=== PATIENT | female | born 1945 | race Two or more races ===

== ENCOUNTER → 2017-07-28 | Outpatient (CLI) | payer MEDICARE, OTHER ==
[~2017-07-28] MED LIST: ALEN1TAB PO; AMLO2.5T29 PO; CALC500T62 PO; DIGO125T71 PO; HYDR12.530 PO; RAMI10TA PO; SIMV20TA6 PO; WARF3TAB59 PO; WARF4TAB6 PO
== END | disposition home or self-care (01) ==
LOC: RADPV 10:22
PROVIDERS: ATTEND Internal Medicine
DX: I35.1 Nonrheumatic aortic (valve) insufficiency (principal); Z95.1 Presence of aortocoronary bypass graft; Z95.2 Presence of prosthetic heart valve
CPT/HCPCS: 93306

== ENCOUNTER 2019-03-07 14:18 | Inpatient (IN) | payer OTHER ==
[~2019-03-07] VITALS: Ht 165.1 cm; Wt 61.2 kg
[~2019-03-07 14:18] MED LIST changes: +SIMV-43 PO; -SIMV20TA6 PO; -WARF4TAB6 PO; +WARF4TAB72 PO
[2019-03-07] MEDS ORDERED: 0.9% SODIUM CHLORIDE 10 ML SYRINGE IVP PRN ×3 (15:15→22:00)
[2019-03-07] MEDS ORDERED: CLINDAMYCIN 300 MG/D5% WATER 50 ML IV ONE (15:15)
[2019-03-07] MEDS ORDERED: CefTRIAXone 1 GM/DEXTROSE 50 ML IV ONE (15:15)
[2019-03-07 16:03] LABS: BASOPHILS % (AUTO) 0.7 % (0.0-2.0); EOSINOPHILS % (AUTO) 2.2 % (1.0-6.0); HEMATOCRIT 37.7 % (36-46); HEMOGLOBIN 12.1 g/dL (12.0-16.0); LYMPHOCYTES # (AUTO) 0.7 K/uL (1.0-4.8); LYMPHOCYTES % (AUTO) 16.8 % (22.0-44.0); MEAN CORPUSCULAR HEMOGLOBIN 26.9 pg (26.0-34.0); MEAN CORPUSCULAR HGB CONC 32.2 G/dL (31.0-37.0); MEAN CORPUSCULAR VOLUME 84 fL (80-100); MONOCYTES # (AUTO) 0.4 K/uL (0.1-1.0); NEUTROPHILS # (AUTO) 3.1 K/uL (1.8-7.7); NEUTROPHILS % (AUTO) 71.3 % (40.0-70.0); PLATELET COUNT (AUTO) 173 K/uL (150-450); RED BLOOD CELL COUNT(AUTO) 4.51 MIL/uL (4.00-5.20); RED CELL DISTRIBUTION WIDTH 17.9 % (11.5-14.5)
[2019-03-07 16:17] LABS: ANION GAP 9 mmol/L (8-16); CALCIUM, TOTAL 8.9 mg/dL (8.8-10.5); CARBON DIOXIDE 28 mmol/L (22-29); CHLORIDE 101 mmol/L (98-107); CREATININE 0.73 mg/dL (0.60-1.30); GLUCOSE,RANDOM 102 mg/dL (70-110); POTASSIUM 3.9 mmol/L (3.5-5.1); SODIUM SERUM 138 mmol/L (136-145); UREA NITROGEN, BLOOD 8 mg/dL (7-18)
[2019-03-07 16:23] LABS: GLOMERULAR FILTR. RATE CALC > 60 mL/min (>60)
[2019-03-07 16:25] LABS: ALANINE AMINOTRANSFERASE 26 U/L (12-78); ALBUMIN 4.3 g/dL (3.4-5.0); ALKALINE PHOSPHATASE 78 U/L (46-116); ASPARTATE AMINOTRANSFERASE 29 U/L (15-37); BILIRUBIN,TOTAL 0.7 mg/dL (0.1-1.0); DIGOXIN 0.38 ng/mL (0.90-2.00); TOTAL PROTEIN, SERUM 8.4 g/dL (6.4-8.2)
[2019-03-07 16:38] LABS: LACTIC ACID 1.8 mmol/L (0.4-2.0)
[2019-03-07] MEDS ORDERED: ACETAMINOPHEN 325 MG TABLET PO PRN (17:45)
[2019-03-07] MEDS ORDERED: ONDANSETRON HCL 4 MG/2 ML VIAL IVP PRN ×2 (17:45→22:00)
[2019-03-07 18:16] LABS: INR 4.9 (0.9-1.1)
[2019-03-07 21:00] VITALS: BP 148/75
[2019-03-07] MEDS: SIMVASTATIN 20 MG TABLET PO SCH (22:00)
[2019-03-07] MEDS: DOCUSATE SODIUM 100 MG CAPSULE PO SCH (22:00)
[2019-03-07] MEDS ORDERED: VANCOMYCIN HCL 1.25 GM in DEXTROSE 5%-WATER 250 ML IV ONE (22:00)
[2019-03-07] MEDS ORDERED: OxyCODONE HCL/ACETAMINOPHEN 5-325 MG TABLET PO PRN ×2 (22:00)
[2019-03-08] VITALS (7 sets, daily range): BP systolic 124–150; BP diastolic 63–86
[2019-03-08] MEDS ORDERED: SODIUM CHLORIDE 0.9% 250 ML IV ONE (00:12)
[2019-03-08] MEDS: VANCOMYCIN HCL 1 GM/D5% WATER 200 ML IV SCH ×2 (05:51→18:09)
[2019-03-08 06:11] LABS: BASOPHILS % (AUTO) 0.6 % (0.0-2.0); EOSINOPHILS % (AUTO) 1.2 % (1.0-6.0); HEMATOCRIT 35.4 % (36-46); HEMOGLOBIN 11.8 g/dL (12.0-16.0); LYMPHOCYTES # (AUTO) 0.5 K/uL (1.0-4.8); LYMPHOCYTES % (AUTO) 13.1 % (22.0-44.0); MEAN CORPUSCULAR HEMOGLOBIN 27.4 pg (26.0-34.0); MEAN CORPUSCULAR HGB CONC 33.2 G/dL (31.0-37.0); MEAN CORPUSCULAR VOLUME 83 fL (80-100); MONOCYTES # (AUTO) 0.4 K/uL (0.1-1.0); MONOCYTES % (AUTO) 9.6 % (2.0-9.0); NEUTROPHILS % (AUTO) 75.5 % (40.0-70.0); PLATELET COUNT (AUTO) 162 K/uL (150-450); RED BLOOD CELL COUNT(AUTO) 4.28 MIL/uL (4.00-5.20)
[2019-03-08 06:21] LABS: ANION GAP 9 mmol/L (8-16); CALCIUM, TOTAL 8.6 mg/dL (8.8-10.5); CARBON DIOXIDE 27 mmol/L (22-29); CHLORIDE 105 mmol/L (98-107); CREATININE 0.69 mg/dL (0.60-1.30); GLUCOSE,RANDOM 93 mg/dL (70-110); POTASSIUM 3.7 mmol/L (3.5-5.1); SODIUM SERUM 141 mmol/L (136-145); UREA NITROGEN, BLOOD 6 mg/dL (7-18)
[2019-03-08 06:22] LABS: PROTHROMBIN TIME 70.3 SEC (9.4-11.6)
[2019-03-08 06:26] LABS: GLOMERULAR FILTR. RATE CALC > 60 mL/min (>60)
[2019-03-08 07:02] LABS: INR 6.9 (0.9-1.1)
[2019-03-08] MEDS: AmLODIPine BESYLATE 2.5 MG TABLET PO SCH (08:44)
[2019-03-08] MEDS: DIGOXIN 125 MCG TABLET PO SCH (08:44)
[2019-03-08] MEDS: DOCUSATE SODIUM 100 MG CAPSULE PO SCH ×2 (08:44→20:10)
[2019-03-08] MEDS ORDERED: FAMOTIDINE 10 MG/ML 2 ML VIAL IVP SCH (09:00)
[2019-03-08] MEDS: CefTRIAXone 1 GM/DEXTROSE 50 ML IV SCH (13:06)
[2019-03-08] MEDS ORDERED: ONDANSETRON HCL 4 MG/2 ML VIAL IVP PRN (15:30)
[2019-03-08] MEDS ORDERED: OxyCODONE HCL/ACETAMINOPHEN 5-325 MG TABLET PO PRN ×2 (15:30)
[2019-03-08] MEDS ORDERED: 0.9% SODIUM CHLORIDE 10 ML SYRINGE IVP PRN (15:30)
[2019-03-08] MEDS ORDERED: INFLUENZA VIRUS VACCINE QVS 2019-20 (3YR+)/PF 60 MCG/0.5 ML SYRINGE IM ONE (18:30)
[2019-03-08] MEDS: FAMOTIDINE 10 MG/ML 2 ML VIAL IVP SCH (20:10)
[2019-03-08] MEDS: SIMVASTATIN 20 MG TABLET PO SCH (20:10)
[2019-03-09 04:46] VITALS: BP 141/69
[2019-03-09] MEDS: VANCOMYCIN HCL 1 GM/D5% WATER 200 ML IV SCH ×2 (05:56→18:01)
[2019-03-09 06:37] LABS: BASOPHILS % (AUTO) 1.1 % (0.0-2.0); EOSINOPHILS % (AUTO) 2.3 % (1.0-6.0); HEMATOCRIT 34.9 % (36-46); HEMOGLOBIN 11.8 g/dL (12.0-16.0); LYMPHOCYTES # (AUTO) 0.5 K/uL (1.0-4.8); LYMPHOCYTES % (AUTO) 16.1 % (22.0-44.0); MEAN CORPUSCULAR HEMOGLOBIN 27.6 pg (26.0-34.0); MEAN CORPUSCULAR HGB CONC 33.8 G/dL (31.0-37.0); MEAN CORPUSCULAR VOLUME 82 fL (80-100); MONOCYTES # (AUTO) 0.4 K/uL (0.1-1.0); MONOCYTES % (AUTO) 12.1 % (2.0-9.0); NEUTROPHILS # (AUTO) 2.1 K/uL (1.8-7.7); NEUTROPHILS % (AUTO) 68.4 % (40.0-70.0); PLATELET COUNT (AUTO) 166 K/uL (150-450); RED BLOOD CELL COUNT(AUTO) 4.27 MIL/uL (4.00-5.20)
[2019-03-09 07:00] LABS: ANION GAP 9 mmol/L (8-16); CALCIUM, TOTAL 8.6 mg/dL (8.8-10.5); CARBON DIOXIDE 27 mmol/L (22-29); CHLORIDE 104 mmol/L (98-107); CREATININE 0.79 mg/dL (0.60-1.30); GLUCOSE,RANDOM 91 mg/dL (70-110); POTASSIUM 3.8 mmol/L (3.5-5.1); SODIUM SERUM 140 mmol/L (136-145); UREA NITROGEN, BLOOD 11 mg/dL (7-18)
[2019-03-09 07:07] LABS: GLOMERULAR FILTR. RATE CALC > 60 mL/min (>60)
[2019-03-09 07:49] LABS: INR 5.2 (0.9-1.1)
[2019-03-09 09:33] VITALS: BP 146/71
[2019-03-09] MEDS: DOCUSATE SODIUM 100 MG CAPSULE PO SCH ×2 (09:38→21:44)
[2019-03-09] MEDS: DIGOXIN 125 MCG TABLET PO SCH (09:38)
[2019-03-09] MEDS: AmLODIPine BESYLATE 2.5 MG TABLET PO SCH (09:38)
[2019-03-09] MEDS: FAMOTIDINE 10 MG/ML 2 ML VIAL IVP SCH ×2 (09:38→21:44)
[2019-03-09] MEDS: CefTRIAXone 1 GM/DEXTROSE 50 ML IV SCH (12:05)
[2019-03-09 12:25] VITALS: BP 148/73
[2019-03-09 15:21] VITALS: BP 135/65
[2019-03-09 19:55] VITALS: BP 150/65
[2019-03-09] MEDS: SIMVASTATIN 20 MG TABLET PO SCH (21:44)
[2019-03-09 23:50] VITALS: BP 140/69
[2019-03-10 04:40] VITALS: BP 134/64
[2019-03-10] MEDS: VANCOMYCIN HCL 1 GM/D5% WATER 200 ML IV SCH (07:13)
[2019-03-10 07:45] VITALS: BP 148/76
[2019-03-10 07:48] LABS: BASOPHILS % (AUTO) 0.9 % (0.0-2.0); EOSINOPHILS % (AUTO) 2.3 % (1.0-6.0); HEMATOCRIT 35.7 % (36-46); HEMOGLOBIN 12.2 g/dL (12.0-16.0); LYMPHOCYTES # (AUTO) 0.6 K/uL (1.0-4.8); MEAN CORPUSCULAR HGB CONC 34.2 G/dL (31.0-37.0); MEAN CORPUSCULAR VOLUME 82 fL (80-100); MONOCYTES # (AUTO) 0.4 K/uL (0.1-1.0); MONOCYTES % (AUTO) 11.5 % (2.0-9.0); NEUTROPHILS # (AUTO) 2.4 K/uL (1.8-7.7); NEUTROPHILS % (AUTO) 68.3 % (40.0-70.0); PLATELET COUNT (AUTO) 177 K/uL (150-450); RED BLOOD CELL COUNT(AUTO) 4.37 MIL/uL (4.00-5.20); RED CELL DISTRIBUTION WIDTH 17.2 % (11.5-14.5)
[2019-03-10 07:57] LABS: INR 2.5 (0.9-1.1); PROTHROMBIN TIME 25.6 SEC (9.4-11.6)
[2019-03-10 08:03] LABS: ANION GAP 6 mmol/L (8-16); CALCIUM, TOTAL 8.8 mg/dL (8.8-10.5); CARBON DIOXIDE 28 mmol/L (22-29); CHLORIDE 102 mmol/L (98-107); CREATININE 0.72 mg/dL (0.60-1.30); GLUCOSE,RANDOM 83 mg/dL (70-110); POTASSIUM 3.9 mmol/L (3.5-5.1); SODIUM SERUM 136 mmol/L (136-145); UREA NITROGEN, BLOOD 10 mg/dL (7-18); VANCOMYCIN,RANDOM 19.2 mcg/mL (25.0-50.0)
[2019-03-10] MEDS: DOCUSATE SODIUM 100 MG CAPSULE PO SCH ×2 (08:06→21:00)
[2019-03-10] MEDS: AmLODIPine BESYLATE 2.5 MG TABLET PO SCH (08:06)
[2019-03-10] MEDS: MULTIVITAMINS WITH MINERALS, THERAPEUTIC TABLET PO SCH (08:07)
[2019-03-10] MEDS: DIGOXIN 125 MCG TABLET PO SCH (08:07)
[2019-03-10] MEDS: FAMOTIDINE 10 MG/ML 2 ML VIAL IVP SCH ×2 (08:07→21:00)
[2019-03-10 08:09] LABS: GLOMERULAR FILTR. RATE CALC > 60 mL/min (>60)
[2019-03-10 11:33] VITALS: BP 140/69
[2019-03-10] MEDS ORDERED: SODIUM CHLORIDE 0.9% 500 ML IV ONE (13:18)
[2019-03-10] MEDS: CefTRIAXone 1 GM/DEXTROSE 50 ML IV SCH (13:23)
[2019-03-10 15:12] VITALS: BP 136/69
[2019-03-10] MEDS ORDERED: WARFARIN SODIUM 3 MG TABLET PO ONE (17:00)
[2019-03-10] MEDS: VANCOMYCIN HCL 750 MG in DEXTROSE 5%-WATER 250 ML IV SCH (18:28)
[2019-03-10 19:30] VITALS: BP 150/74
[2019-03-10] MEDS: SIMVASTATIN 20 MG TABLET PO SCH (21:00)
[2019-03-10 23:45] VITALS: BP 136/75
[2019-03-11 04:00] VITALS: BP 154/76
[2019-03-11 05:53] LABS: BASOPHILS % (AUTO) 0.6 % (0.0-2.0); HEMATOCRIT 34.2 % (36-46); HEMOGLOBIN 11.5 g/dL (12.0-16.0); LYMPHOCYTES # (AUTO) 0.6 K/uL (1.0-4.8); LYMPHOCYTES % (AUTO) 16.8 % (22.0-44.0); MEAN CORPUSCULAR HEMOGLOBIN 27.5 pg (26.0-34.0); MEAN CORPUSCULAR HGB CONC 33.7 G/dL (31.0-37.0); MEAN CORPUSCULAR VOLUME 82 fL (80-100); MONOCYTES # (AUTO) 0.4 K/uL (0.1-1.0); MONOCYTES % (AUTO) 12.5 % (2.0-9.0); NEUTROPHILS # (AUTO) 2.3 K/uL (1.8-7.7); NEUTROPHILS % (AUTO) 68.1 % (40.0-70.0); PLATELET COUNT (AUTO) 166 K/uL (150-450); RED CELL DISTRIBUTION WIDTH 17.1 % (11.5-14.5)
[2019-03-11 05:56] LABS: ANION GAP 8 mmol/L (8-16); CALCIUM, TOTAL 8.5 mg/dL (8.8-10.5); CARBON DIOXIDE 27 mmol/L (22-29); CHLORIDE 103 mmol/L (98-107); CREATININE 0.87 mg/dL (0.60-1.30); GLUCOSE,RANDOM 87 mg/dL (70-110); POTASSIUM 3.8 mmol/L (3.5-5.1); SODIUM SERUM 138 mmol/L (136-145); UREA NITROGEN, BLOOD 14 mg/dL (7-18)
[2019-03-11 06:01] LABS: GLOMERULAR FILTR. RATE CALC > 60 mL/min (>60)
[2019-03-11] MEDS: VANCOMYCIN HCL 750 MG in DEXTROSE 5%-WATER 250 ML IV SCH (06:05)
[2019-03-11 06:07] LABS: INR 1.7 (0.9-1.1); PROTHROMBIN TIME 17.4 SEC (9.4-11.6)
[2019-03-11 07:50] VITALS: BP 142/70
[2019-03-11] MEDS: FAMOTIDINE 10 MG/ML 2 ML VIAL IVP SCH (08:30)
[2019-03-11] MEDS: DOCUSATE SODIUM 100 MG CAPSULE PO SCH (08:30)
[2019-03-11] MEDS: DIGOXIN 125 MCG TABLET PO SCH (08:30)
[2019-03-11] MEDS: AmLODIPine BESYLATE 2.5 MG TABLET PO SCH (08:30)
[2019-03-11] MEDS: MULTIVITAMINS WITH MINERALS, THERAPEUTIC TABLET PO SCH (08:30)
== END 2019-03-11 10:40 | disposition home or self-care (01) | DRG 603 ==
LOC: EMS 14:19 → 4E 19:46
PROVIDERS: ADMIT Internal Medicine; ATTEND Internal Medicine
DX: L03.116 Cellulitis of left lower limb (principal); I69.351 Hemiplegia and hemiparesis following cerebral infarction affecting right dominant side; T45.515A Adverse effect of anticoagulants, initial encounter; I10 Essential (primary) hypertension; I25.10 Atherosclerotic heart disease of native coronary artery without angina pectoris; R79.1 Abnormal coagulation profile; E78.5 Hyperlipidemia, unspecified; E11.9 Type 2 diabetes mellitus without complications; Z95.2 Presence of prosthetic heart valve; Z95.0 Presence of cardiac pacemaker
CPT/HCPCS: 83605; 84145; 87040; 87070; 87205; 93005; 93925; 97116; 97162; G0378; J0696; J3370; J3490; J7040; J7050; J7060

== ENCOUNTER 2023-02-20 11:41 | Emergency (ER) | payer OTHER ==
[~2023-02-20] VITALS: Ht 157.5 cm; Wt 54.5 kg
[~2023-02-20 11:41] MED LIST changes: -ALEN1TAB PO; +ALEN70TA80 PO; -AMLO2.5T29 PO; -CALC500T62 PO; -DIGO125T71 PO; +DIGO125T72 PO; +FURO40TA5 PO; +GABA-529 PO; -HYDR12.530 PO; +IPRA4AER IH; +LACT10SO75 PO; +LEVO50TA11 PO; +RAMI10CA69 PO; -RAMI10TA PO; -WARF4TAB72 PO
[2023-02-20 11:46] VITALS: TEMP 98.3
[2023-02-20] MEDS ORDERED: WARF2TAB10 PO (11:52)
[2023-02-20] MEDS ORDERED: RAMI5CAP66 PO (11:52)
[2023-02-20] MEDS ORDERED: LEVO50CA4 PO (11:52)
[2023-02-20] MEDS ORDERED: ALEN70TA65 PO (11:52)
[2023-02-20] MEDS ORDERED: SIMV-43 PO (11:52)
[2023-02-20] MEDS ORDERED: LACT10SO75 PO (11:52)
[2023-02-20] MEDS ORDERED: AMLO5TAB66 PO (11:52)
[2023-02-20] MEDS ORDERED: FURO40 PO (11:52)
[2023-02-20] MEDS ORDERED: DIGO125T84 PO (11:52)
[2023-02-20] MEDS ORDERED: GABA-1216 PO (11:52)
[2023-02-20 12:50] LABS: BASOPHILS % (AUTO) 0.6 % (0.0-2.0); EOSINOPHILS % (AUTO) 1.2 % (1.0-6.0); HEMATOCRIT 31.4 % (36-46); HEMOGLOBIN 10.4 g/dL (12.0-16.0); LYMPHOCYTES # (AUTO) 0.5 K/uL (1.0-4.8); LYMPHOCYTES % (AUTO) 8.9 % (22.0-44.0); MEAN CORPUSCULAR HEMOGLOBIN 28.1 pg (26.0-34.0); MEAN CORPUSCULAR VOLUME 85 fL (80-100); MONOCYTES # (AUTO) 0.5 K/uL (0.1-1.0); NEUTROPHILS # (AUTO) 4.4 K/uL (1.8-7.7); NEUTROPHILS % (AUTO) 80.3 % (40.0-70.0); PLATELET COUNT (AUTO) 148 K/uL (150-450); RED CELL DISTRIBUTION WIDTH 18.2 % (11.5-14.5); WHITE BLOOD COUNT (AUTO) 5.4 K/uL (4.5-11.0)
[2023-02-20 13:03] LABS: PROTHROMBIN TIME 38.9 SEC (9.4-11.6)
[2023-02-20 13:06] LABS: INR 4.1 (0.9-1.1)
[2023-02-20] MEDS ORDERED: CEPH-558 PO (14:06)
[2023-02-20 14:21] VITALS: BP 146/74; PULSE 74; RESP 18
== END 2023-02-20 14:22 | disposition home or self-care (01) ==
LOC: EMS 11:48
DX: M25.531 Pain in right wrist (principal); I10 Essential (primary) hypertension; I69.351 Hemiplegia and hemiparesis following cerebral infarction affecting right dominant side
CPT/HCPCS: 85025; 85610; 99284

== ENCOUNTER 2023-02-21 10:57 | Inpatient (IN) | payer OTHER ==
[~2023-02-21] VITALS: Ht 152.4 cm; Wt 54.5 kg
[~2023-02-21 10:57] MED LIST changes: +ALEN70TA65 PO; +AMLO5TAB66 PO; +CEPH-558 PO; +DIGO125T84 PO; +FURO40 PO; +GABA-1216 PO; +LEVO50CA4 PO; +RAMI5CAP66 PO; +WARF2TAB10 PO
[2023-02-21 11:54] LABS: BASOPHILS % (AUTO) 0.5 % (0.0-2.0); EOSINOPHILS % (AUTO) 1.4 % (1.0-6.0); HEMATOCRIT 33.5 % (36-46); LYMPHOCYTES # (AUTO) 0.6 K/uL (1.0-4.8); LYMPHOCYTES % (AUTO) 14.4 % (22.0-44.0); MEAN CORPUSCULAR HGB CONC 32.8 G/dL (31.0-37.0); MEAN CORPUSCULAR VOLUME 85 fL (80-100); MONOCYTES # (AUTO) 0.4 K/uL (0.1-1.0); MONOCYTES % (AUTO) 10.2 % (2.0-9.0); NEUTROPHILS # (AUTO) 2.9 K/uL (1.8-7.7); NEUTROPHILS % (AUTO) 73.5 % (40.0-70.0); PLATELET COUNT (AUTO) 171 K/uL (150-450); RED BLOOD CELL COUNT(AUTO) 3.93 MIL/uL (4.00-5.20); RED CELL DISTRIBUTION WIDTH 17.7 % (11.5-14.5)
[2023-02-21 12:12] LABS: LACTIC ACID 0.7 mmol/L (0.4-2.0); TROPONIN I-HIGH SENSITIVITY 16 ng/L (<51)
[2023-02-21] MEDS ORDERED: VANCOMYCIN 1GM/WATER(PEG/NADA) 200 ML IV ONE (12:15)
[2023-02-21 12:17] LABS: ANION GAP 7 mmol/L (8-16); CALCIUM, TOTAL 9.4 mg/dL (8.8-10.5); CARBON DIOXIDE 29 mmol/L (22-29); CHLORIDE 101 mmol/L (98-107); CREATININE 0.71 mg/dL (0.60-1.30); GLOMERULAR FILTR. RATE CALC > 60 mL/min (>60); GLUCOSE,RANDOM 83 mg/dL (70-110); POTASSIUM 3.7 mmol/L (3.5-5.1); SODIUM SERUM 137 mmol/L (136-145); UREA NITROGEN, BLOOD 9 mg/dL (7-18)
[2023-02-21 12:21] LABS: ALANINE AMINOTRANSFERASE 32 U/L (12-78); ALKALINE PHOSPHATASE 97 U/L (46-116); ASPARTATE AMINOTRANSFERASE 31 U/L (15-37); BILIRUBIN,TOTAL 0.8 mg/dL (0.1-1.0); TOTAL PROTEIN, SERUM 8.2 g/dL (6.4-8.2)
[2023-02-21 13:55] LABS: COVID AG,FIA SOURCE NASAL SWAB
[2023-02-21 14:15] VITALS: BP 153/75; PULSE 60; RESP 18; TEMP 97.6
[2023-02-21 14:15] LABS: SARS-COV2 (COVID) ANTIGEN,FIA Negative (Negative)
[2023-02-21] MEDS ORDERED: SODIUM CHLORIDE 0.9% 500 ML IV ONE (14:23)
[2023-02-21 15:52] VITALS: BP 152/78; PULSE 63; RESP 18; TEMP 97.8
[2023-02-21] MEDS ORDERED: MAGNESIUM HYDROXIDE SUSPENSION 30 ML UDCUP PO PRN (16:15)
[2023-02-21] MEDS ORDERED: *CLINICAL-WARFARIN SODIUM DOSING CLINICAL ONE (16:15)
[2023-02-21] MEDS ORDERED: OxyCODONE HCL/ACETAMINOPHEN 5-325 MG TABLET PO PRN (16:15)
[2023-02-21] MEDS ORDERED: ONDANSETRON HCL 4 MG/2 ML VIAL IVP PRN (16:15)
[2023-02-21] MEDS ORDERED: ACETAMINOPHEN 325 MG TABLET PO PRN (16:15)
[2023-02-21 16:24] LABS: PROTHROMBIN TIME 28.9 SEC (9.4-11.6)
[2023-02-21 16:25] LABS: DIGOXIN 1.04 ng/mL (0.90-2.00)
[2023-02-21] MEDS: WARFARIN SODIUM 2 MG TABLET PO SCH (17:15)
[2023-02-21] MEDS: LISINOPRIL 10 MG TABLET PO SCH (17:16)
[2023-02-21 18:20] LABS: APPEARANCE,URINE CLEAR (CLEAR); BILIRUBIN,URINE NEGATIVE (NEGATIVE); COLOR,URINE COLORLESS (YELLOW); GLUCOSE, URINE (UA) NEGATIVE (NEGATIVE); KETONES,URINE NEGATIVE (NEGATIVE); LEUKOCYTE ESTERASE ,URINE LARGE (NEGATIVE); NITRATE,URINE NEGATIVE (NEGATIVE); OCCULT BLOOD,URINE NEGATIVE (NEGATIVE); PROTEIN,URINE NEGATIVE (NEGATIVE); SPECIFIC GRAVITIY, URINE 1.009 (1.003-1.030); UROBILINOGEN,URINE <=1.0 mg/dL (<=1.0)
[2023-02-21 18:32] LABS: RENAL EPITHELIAL CELLS,URINE Few /LPF (None Seen)
[2023-02-21 18:33] LABS: BACTERIA,URINE None Seen /HPF (None Seen); RBC,URINE None Seen /HPF (0-2)
[2023-02-21] MEDS: DOCUSATE SODIUM 100 MG CAPSULE PO SCH (20:04)
[2023-02-21 20:10] VITALS: BP 137/69; PULSE 61; RESP 18; TEMP 97.4
[2023-02-22 04:04] VITALS: BP 136/71; PULSE 60; RESP 18; TEMP 98
[2023-02-22 07:12] LABS: INR 2.9 (0.9-1.1); PROTHROMBIN TIME 28.3 SEC (9.4-11.6)
[2023-02-22 07:30] VITALS: BP 134/68; PULSE 61; RESP 18; TEMP 97.6
[2023-02-22 07:35] LABS: ANION GAP 7 mmol/L (8-16); CALCIUM, TOTAL 8.7 mg/dL (8.8-10.5); CARBON DIOXIDE 27 mmol/L (22-29); CHLORIDE 104 mmol/L (98-107); CREATININE 0.68 mg/dL (0.60-1.30); GLOMERULAR FILTR. RATE CALC > 60 mL/min (>60); GLUCOSE,RANDOM 85 mg/dL (70-110); POTASSIUM 3.8 mmol/L (3.5-5.1); SODIUM SERUM 138 mmol/L (136-145); UREA NITROGEN, BLOOD 11 mg/dL (7-18)
[2023-02-22] MEDS: VANCOMYCIN 1GM/WATER(PEG/NADA) 200 ML IV SCH (08:00)
[2023-02-22] MEDS: ATORVASTATIN CALCIUM 20 MG TABLET PO SCH (08:43)
[2023-02-22] MEDS: DOCUSATE SODIUM 100 MG CAPSULE PO SCH ×2 (08:43→20:16)
[2023-02-22] MEDS: LISINOPRIL 10 MG TABLET PO SCH (08:43)
[2023-02-22] MEDS: DIGOXIN 125 MCG TABLET PO SCH (08:43)
[2023-02-22] MEDS: FUROSEMIDE 20 MG TABLET PO SCH (08:43)
[2023-02-22] MEDS: FAMOTIDINE 20 MG TABLET PO SCH (08:43)
[2023-02-22 16:15] VITALS: BP 131/63; PULSE 64; RESP 18; TEMP 97.5
[2023-02-22] MEDS: WARFARIN SODIUM 2 MG TABLET PO SCH (17:17)
[2023-02-22 20:00] VITALS: BP 141/74; PULSE 60; RESP 18; TEMP 97.5
[2023-02-22 22:47] VITALS: BP 138/72; PULSE 60; RESP 18; TEMP 97.9
[2023-02-23 02:47] VITALS: BP 132/70; PULSE 67; RESP 18; TEMP 98
[2023-02-23 07:03] LABS: ANION GAP 8 mmol/L (8-16); CALCIUM, TOTAL 9.1 mg/dL (8.8-10.5); CARBON DIOXIDE 29 mmol/L (22-29); CHLORIDE 100 mmol/L (98-107); CREATININE 0.73 mg/dL (0.60-1.30); GLOMERULAR FILTR. RATE CALC > 60 mL/min (>60); GLUCOSE,RANDOM 116 mg/dL (70-110); INR 3.5 (0.9-1.1); POTASSIUM 4.3 mmol/L (3.5-5.1); PROTHROMBIN TIME 33.6 SEC (9.4-11.6); SODIUM SERUM 137 mmol/L (136-145); UREA NITROGEN, BLOOD 16 mg/dL (7-18)
[2023-02-23 08:45] VITALS: BP 143/64; PULSE 60; RESP 19; TEMP 97.9
[2023-02-23] MEDS: VANCOMYCIN 1GM/WATER(PEG/NADA) 200 ML IV SCH (08:56)
[2023-02-23] MEDS: ATORVASTATIN CALCIUM 20 MG TABLET PO SCH (08:57)
[2023-02-23] MEDS: DOCUSATE SODIUM 100 MG CAPSULE PO SCH (08:57)
[2023-02-23] MEDS: FUROSEMIDE 20 MG TABLET PO SCH (08:57)
[2023-02-23] MEDS: LISINOPRIL 10 MG TABLET PO SCH (08:57)
[2023-02-23] MEDS: DIGOXIN 125 MCG TABLET PO SCH (08:57)
[2023-02-23] MEDS: FAMOTIDINE 20 MG TABLET PO SCH (08:57)
[2023-02-23] MEDS ORDERED: DOXY50 PO (12:32)
[2023-02-23] MEDS ORDERED: DIGO125T84 PO (12:32)
[2023-02-23] MEDS ORDERED: LISI-893 PO (12:32)
[2023-02-23] MEDS ORDERED: FURO20 PO (12:32)
[2023-02-23 13:00] LABS: BASOPHILS % (AUTO) 0.8 % (0.0-2.0); EOSINOPHILS % (AUTO) 0.2 % (1.0-6.0); HEMATOCRIT 31.9 % (36-46); HEMOGLOBIN 10.5 g/dL (12.0-16.0); LYMPHOCYTES # (AUTO) 0.4 K/uL (1.0-4.8); LYMPHOCYTES % (AUTO) 8.5 % (22.0-44.0); MEAN CORPUSCULAR HEMOGLOBIN 28.1 pg (26.0-34.0); MEAN CORPUSCULAR VOLUME 85 fL (80-100); MONOCYTES # (AUTO) 0.3 K/uL (0.1-1.0); MONOCYTES % (AUTO) 5.2 % (2.0-9.0); NEUTROPHILS # (AUTO) 4.5 K/uL (1.8-7.7); PLATELET COUNT (AUTO) 161 K/uL (150-450); RED BLOOD CELL COUNT(AUTO) 3.74 MIL/uL (4.00-5.20); RED CELL DISTRIBUTION WIDTH 17.8 % (11.5-14.5); WHITE BLOOD COUNT (AUTO) 5.2 K/uL (4.5-11.0)
[2023-02-23 13:02] LABS: NEUTROPHILS % (AUTO) 85.3 % (40.0-70.0)
[2023-02-23 16:51] VITALS: BP 130/65; PULSE 60; RESP 19; TEMP 98.4
[2023-02-23] MEDS ORDERED: WARFARIN SODIUM 2 MG TABLET PO SCH (17:00)
== END 2023-02-23 19:15 | disposition home or self-care (01) | DRG 603 ==
LOC: EMS 11:00 → 6N 13:12
PROVIDERS: ADMIT Internal Medicine; ATTEND Internal Medicine
DX: L03.114 Cellulitis of left upper limb (principal); I69.351 Hemiplegia and hemiparesis following cerebral infarction affecting right dominant side; I48.20 Chronic atrial fibrillation, unspecified; I42.9 Cardiomyopathy, unspecified; Z95.0 Presence of cardiac pacemaker; I49.5 Sick sinus syndrome; I50.9 Heart failure, unspecified; I11.0 Hypertensive heart disease with heart failure; E78.5 Hyperlipidemia, unspecified; Z20.822 Contact with and (suspected) exposure to COVID-19; I07.1 Rheumatic tricuspid insufficiency; I25.10 Atherosclerotic heart disease of native coronary artery without angina pectoris; I69.320 Aphasia following cerebral infarction; Z95.2 Presence of prosthetic heart valve; Z79.899 Other long term (current) drug therapy
CPT/HCPCS: 80048; 80053; 80162; 81001; 83605; 84484; 85025; 85610; 87040; 93005; 97163; 97167; 97530; 97535; 99285; J7040; Q9967